=== PATIENT | male | born 1975 | race Caucasian/White ===

== ENCOUNTER 2017-10-28 08:00 | Emergency (ER) | payer MEDICAID ==
[~2017-10-28] VITALS: Ht 165.1 cm; Wt 148.1 kg
[2017-10-28 08:08] VITALS: BP 135/73
[2017-10-28] MEDS ORDERED: OXYcodone/APAP 5/325MG TABLET PO ONE (08:30)
[2017-10-28] MEDS ORDERED: OXYcodone/APAP 5/325MG TABLET ONE (08:32)
== END 2017-10-28 08:49 | disposition home or self-care (01) ==
LOC: ED 08:29
DX: S43.004A Unspecified dislocation of right shoulder joint, initial encounter (principal); X58.XXXA Exposure to other specified factors, initial encounter; Y93.89 Activity, other specified; Y92.009 Unspecified place in unspecified non-institutional (private) residence as the place of occurrence of the external cause; Y99.8 Other external cause status
CPT/HCPCS: 23650; 99284

== ENCOUNTER 2017-12-25 13:05 | Emergency (ER) | payer MEDICAID ==
[~2017-12-25] VITALS: Ht 167.6 cm; Wt 144.0 kg
[2017-12-25 14:15] LABS: BASOPHILS # (AUTO) 0.05 x10^3/uL (0-0.1); BASOPHILS % (AUTO) 1 % (0-1); EOSINOPHILS # (AUTO) 0.25 x10^3/uL (0-0.4); EOSINOPHILS % (AUTO) 3 % (1-7); LYMPHOCYTES # (AUTO) 2.42 x10^3/uL (1-3.4); LYMPHOCYTES % (AUTO) 24 % (22-44); MD NO; MEAN CORPUSCULAR HEMOGLOBIN 32.1 pg (27.5-34.5); MEAN CORPUSCULAR HGB CONC 34.7 g/dL (33.2-36.2); MEAN CORPUSCULAR VOLUME 92.5 fL (81-97); MEAN PLATELET VOLUME 8.2 fL (7.4-10.4); MONOCYTES # (AUTO) 0.57 x10^3/uL (0.2-0.8); MONOCYTES % (AUTO) 6 % (2-9); NEUTROPHILS # (AUTO) 6.84 x10^3/uL (1.8-6.8); NEUTROPHILS % (AUTO) 68 % (42-75); PLATELET COUNT 255 x10^3/uL (130-400); RED BLOOD COUNT 4.81 x10^6/uL (4.38-5.82); RED CELL DISTRIBUTION WIDTH 13.6 % (9.4-14.8)
[2017-12-25 14:22] LABS: ANION GAP 1 mmol/L (5-15); CALCIUM 8.7 mg/dL (8.5-10.1); CHLORIDE 113 mmol/L (98-107); CREATININE 0.71 mg/dL (0.7-1.3)
[2017-12-25] MEDS ORDERED: RISP3TAB3 PO (15:10)
[2017-12-25] MEDS ORDERED: TOPI25TA32 PO (15:11)
[2017-12-25] MEDS ORDERED: BENZ2TAB6 PO (15:11)
[2017-12-25 15:34] VITALS: BP 107/61
== END 2017-12-25 17:05 | disposition home or self-care (01) ==
LOC: ED 16:13
DX: R53.1 Weakness (principal); R11.0 Nausea; R19.7 Diarrhea, unspecified; F20.9 Schizophrenia, unspecified; R42 Dizziness and giddiness; Z59.0 Homelessness; F17.200 Nicotine dependence, unspecified, uncomplicated
CPT/HCPCS: 36415; 80048; 85025; 93005; 99285

== ENCOUNTER 2018-01-10 17:07 | Emergency (ER) | payer MEDICAID ==
[~2018-01-10] VITALS: Ht 167.6 cm; Wt 141.0 kg
[~2018-01-10 17:07] MED LIST: BENZ2TAB6 PO; RISP3TAB3 PO; TOPI25TA32 PO
[2018-01-10] MEDS ORDERED: SODIUM CHLORIDE 0.9% 1,000ML IVBOLUS ONE (17:30)
[2018-01-10] MEDS ORDERED: SODIUM CHLORIDE FLUSH 10ML SYR IVF ONE (17:30)
[2018-01-10 17:47] LABS: CULTURE INDICATED? YES; MICROSCOPIC INDICATED
[2018-01-10 18:21] LABS: ALANINE AMINOTRANSFERASE 34 U/L (12-78); ANION GAP 7 mmol/L (5-15); CALCIUM 7.8 mg/dL (8.5-10.1); CHLORIDE 112 mmol/L (98-107); CREATININE 0.64 mg/dL (0.7-1.3)
[2018-01-10 18:24] LABS: ALKALINE PHOSPHATASE 70 U/L (45-117); BASOPHILS # (AUTO) 0.01 x10^3/uL (0-0.1); BASOPHILS % (AUTO) 0 % (0-1); BILIRUBIN,TOTAL 0.5 mg/dL (0.2-1.0); EOSINOPHILS # (AUTO) 0.07 x10^3/uL (0-0.4); EOSINOPHILS % (AUTO) 2 % (1-7); LYMPHOCYTES # (AUTO) 1.27 x10^3/uL (1-3.4); LYMPHOCYTES % (AUTO) 28 % (22-44); MD NO; MEAN CORPUSCULAR HEMOGLOBIN 32.3 pg (27.5-34.5); MEAN CORPUSCULAR VOLUME 92.3 fL (81-97); MEAN PLATELET VOLUME 8.1 fL (7.4-10.4); MONOCYTES # (AUTO) 0.36 x10^3/uL (0.2-0.8); MONOCYTES % (AUTO) 8 % (2-9); NEUTROPHILS # (AUTO) 2.89 x10^3/uL (1.8-6.8); NEUTROPHILS % (AUTO) 63 % (42-75); PLATELET COUNT 217 x10^3/uL (130-400); RED BLOOD COUNT 4.65 x10^6/uL (4.38-5.82); RED CELL DISTRIBUTION WIDTH 13.8 % (9.4-14.8); TOTAL PROTEIN 6.1 g/dL (6.4-8.2)
[2018-01-10 20:16] VITALS: BP 125/55
== END 2018-01-10 20:19 | disposition home or self-care (01) ==
LOC: ED 20:13
DX: R11.2 Nausea with vomiting, unspecified (principal); R19.7 Diarrhea, unspecified; R10.9 Unspecified abdominal pain; F17.200 Nicotine dependence, unspecified, uncomplicated
CPT/HCPCS: 36415; 80053; 81001; 83605; 83690; 85025; 87086; 99284; J7030

== ENCOUNTER 2018-07-30 07:51 | Emergency (ER) | payer MEDICAID ==
[~2018-07-30] VITALS: Ht 167.6 cm; Wt 150.0 kg
[2018-07-30] MEDS ORDERED: MECLIZINE CHEWABLE 25 MG TAB PO ONE (09:00)
[2018-07-30] MEDS ORDERED: PLEASE ENTER HEIGHT AND WEIGHT MC SCH (09:00)
[2018-07-30] MEDS ORDERED: ONDANSETRON ODT 4 MG PO ONE (09:00)
[2018-07-30] MEDS ORDERED: MECLIZINE CHEWABLE 25 MG TAB ONE (09:01)
[2018-07-30] MEDS ORDERED: ONDANSETRON ODT 4 MG ONE (09:01)
[2018-07-30 09:04] VITALS: BP 116/79
--- NOTE | 2018-07-30 09:04 | NUR ---
pt returned from CT, upright on gurney awake & calm, responds approp to staff, NAD, comfort measures provided, call light within reach.
[2018-07-30 09:11] LABS: BASOPHILS # (AUTO) 0.14 x10^3/uL (0-0.1); BASOPHILS % (AUTO) 2 % (0-1); EOSINOPHILS # (AUTO) 0.22 x10^3/uL (0-0.4); EOSINOPHILS % (AUTO) 2 % (1-7); LYMPHOCYTES # (AUTO) 2.47 x10^3/uL (1-3.4); LYMPHOCYTES % (AUTO) 26 % (22-44); MD NO; MEAN CORPUSCULAR HEMOGLOBIN 31.8 pg (27.5-34.5); MEAN CORPUSCULAR HGB CONC 33.8 g/dL (33.2-36.2); MEAN CORPUSCULAR VOLUME 93.9 fL (81-97); MONOCYTES # (AUTO) 0.64 x10^3/uL (0.2-0.8); MONOCYTES % (AUTO) 7 % (2-9); NEUTROPHILS # (AUTO) 5.98 x10^3/uL (1.8-6.8); NEUTROPHILS % (AUTO) 63 % (42-75); PLATELET COUNT 250 x10^3/uL (130-400); RED BLOOD COUNT 5.19 x10^6/uL (4.38-5.82); RED CELL DISTRIBUTION WIDTH 13.8 % (9.4-14.8)
[2018-07-30 09:23] LABS: ANION GAP 6 mmol/L (5-15); CALCIUM 9.4 mg/dL (8.5-10.1); CHLORIDE 110 mmol/L (98-107)
[2018-07-30 09:24] LABS: CREATININE 0.77 mg/dL (0.7-1.3)
--- NOTE | 2018-07-30 09:26 | NUR ---
pt tolerated PO fluids well, denies NV, ERP aware.
--- NOTE | 2018-07-30 10:04 | NUR ---
pt remains upright on gurney awake & calm, responds approp to staff, NAD, comfort measures provided, call light within reach.
--- NOTE | 2018-07-30 10:31 | NUR ---
Patient given discharge instructions and Rx, they have confirmed that they understand the instructions. Patient ambulatory with steady gait.
== END 2018-07-30 10:32 | disposition home or self-care (01) ==
LOC: ED 10:16
DX: R42 Dizziness and giddiness (principal); F20.9 Schizophrenia, unspecified; F31.9 Bipolar disorder, unspecified; Z79.899 Other long term (current) drug therapy
CPT/HCPCS: 36415; 70450; 80048; 85025; 93005; 99284; Q0162

== ENCOUNTER 2018-11-21 20:00 | Emergency (ER) | payer MEDICAID ==
[~2018-11-21] VITALS: Ht 167.6 cm; Wt 130.9 kg
[2018-11-21 20:02] VITALS: BP 132/70
[2018-11-21 20:39] LABS: BASOPHILS # (AUTO) 0.11 x10^3/uL (0-0.1); BASOPHILS % (AUTO) 1 % (0-1); EOSINOPHILS # (AUTO) 0.26 x10^3/uL (0-0.4); EOSINOPHILS % (AUTO) 3 % (1-7); LYMPHOCYTES # (AUTO) 2.74 x10^3/uL (1-3.4); LYMPHOCYTES % (AUTO) 30 % (22-44); MD NO; MEAN CORPUSCULAR HEMOGLOBIN 32.5 pg (27.5-34.5); MEAN CORPUSCULAR HGB CONC 33.7 g/dL (33.2-36.2); MEAN CORPUSCULAR VOLUME 96.3 fL (81-97); MEAN PLATELET VOLUME 8.2 fL (7.4-10.4); MONOCYTES # (AUTO) 0.64 x10^3/uL (0.2-0.8); MONOCYTES % (AUTO) 7 % (2-9); NEUTROPHILS # (AUTO) 5.46 x10^3/uL (1.8-6.8); NEUTROPHILS % (AUTO) 59 % (42-75); PLATELET COUNT 274 x10^3/uL (130-400); RED BLOOD COUNT 4.92 x10^6/uL (4.38-5.82); RED CELL DISTRIBUTION WIDTH 13.9 % (9.4-14.8)
[2018-11-21 20:47] LABS: ALANINE AMINOTRANSFERASE 31 U/L (12-78); ALBUMIN 3.7 g/dL (3.4-5.0); ANION GAP 7 mmol/L (5-15); CALCIUM 9.2 mg/dL (8.5-10.1); CHLORIDE 113 mmol/L (98-107); CREATININE 0.73 mg/dL (0.7-1.3)
[2018-11-21 20:49] LABS: ALKALINE PHOSPHATASE 71 U/L (45-117); BILIRUBIN,TOTAL 0.2 mg/dL (0.2-1.0)
== END 2018-11-21 21:46 | disposition home or self-care (01) ==
LOC: ED 21:42
DX: S29.9XXA Unspecified injury of thorax, initial encounter (principal); K80.20 Calculus of gallbladder without cholecystitis without obstruction; F31.9 Bipolar disorder, unspecified; F20.9 Schizophrenia, unspecified; E66.9 Obesity, unspecified; Z68.42 Body mass index [BMI] 45.0-49.9, adult; W19.XXXA Unspecified fall, initial encounter; Y93.89 Activity, other specified; Y92.89 Other specified places as the place of occurrence of the external cause; Y99.8 Other external cause status
CPT/HCPCS: 36415; 76700; 80053; 80307; 83690; 85025; 99284

== ENCOUNTER 2018-11-23 10:17 | Emergency (ER) | payer MEDICAID ==
[~2018-11-23] VITALS: Ht 167.6 cm; Wt 130.0 kg
[2018-11-23] MEDS ORDERED: HYDROcodone/APAP 5/325 TABLET ONE (11:15)
--- NOTE | 2018-11-23 11:17 | NUR ---
PT MEDICATED PER JUN. PT RESTING IN GURNEY WITH MOTHER AT BEDSIDE. NO NEEDS AT THIS TIME
[2018-11-23] MEDS ORDERED: HYDROcodone/APAP 5/325 TABLET PO ONE (11:30)
--- NOTE | 2018-11-23 11:35 | NUR ---
PT TO CT
[2018-11-23 12:02] VITALS: BP 122/61
--- NOTE | 2018-11-23 12:32 | NUR ---
PT NOW REFUSING HEAD CT, STATES HE WANTS TO LEAVE TO SMOKE A CIGARETTE. PTS MOTHER WOULD LIKE TO FU WITH FOOD SCIENCE TECHNICIAN. MD NOTIFIED
== END 2018-11-23 13:01 | disposition home or self-care (01) ==
LOC: ED 12:29
DX: S20.211A Contusion of right front wall of thorax, initial encounter (principal); W18.30XA Fall on same level, unspecified, initial encounter; Y93.89 Activity, other specified; Y92.098 Other place in other non-institutional residence as the place of occurrence of the external cause; Y99.8 Other external cause status
CPT/HCPCS: 71250; 99284

== ENCOUNTER 2018-12-08 06:11 | Emergency (ER) | payer MEDICAID ==
[~2018-12-08] VITALS: Ht 165.1 cm; Wt 131.5 kg
[2018-12-08 08:06] VITALS: BP 152/70
== END 2018-12-08 08:09 | disposition home or self-care (01) ==
LOC: ED 06:20
DX: L03.113 Cellulitis of right upper limb (principal); L03.114 Cellulitis of left upper limb; F17.200 Nicotine dependence, unspecified, uncomplicated
CPT/HCPCS: 71045; 99283

== ENCOUNTER 2018-12-29 19:55 | Emergency (ER) | payer MEDICAID ==
[~2018-12-29] VITALS: Ht 170.2 cm; Wt 132.0 kg
[2018-12-29 21:35] VITALS: BP 101/64
== END 2018-12-29 21:37 | disposition home or self-care (01) ==
LOC: ED 20:20
DX: J00 Acute nasopharyngitis [common cold] (principal); B34.9 Viral infection, unspecified; F31.9 Bipolar disorder, unspecified; F20.9 Schizophrenia, unspecified; E66.9 Obesity, unspecified; Z68.42 Body mass index [BMI] 45.0-49.9, adult
CPT/HCPCS: 71045; 99283

== ENCOUNTER 2019-02-25 07:42 | Emergency (ER) | payer MEDICAID ==
[~2019-02-25] VITALS: Ht 157.5 cm; Wt 131.3 kg
[2019-02-25 07:44] VITALS: BP 105/55
--- NOTE | 2019-02-25 08:36 | NUR ---
Patient given discharge instructions and they have confirmed that they understand the instructions. Patient ambulatory with steady gait.
== END 2019-02-25 08:43 | disposition home or self-care (01) ==
LOC: ED 08:33
DX: R05 Cough (principal); E66.9 Obesity, unspecified
CPT/HCPCS: 71046; 82962; 99283

== ENCOUNTER 2019-03-15 09:39 | Emergency (ER) | payer MEDICAID ==
[2019-03-15 09:43] VITALS: BP 107/65
--- NOTE | 2019-03-15 09:54 | NUR ---
PATIENT BROUGHT BACK FROM TRIAGE WITH CHIEF COMPLAINT OF "FEELING POOR SINCE YESTERDAY, MY MOM HAS PNEUMONIA" THE PATIENT STATES HE HAS HAD ANNINTTERMITTENT COUGH, SORE THROAT, & CONGESTION.
[2019-03-15 10:21] LABS: BASOPHILS # (AUTO) 0.02 x10^3/uL (0-0.1); BASOPHILS % (AUTO) 0 % (0-1); EOSINOPHILS # (AUTO) 0.11 x10^3/uL (0-0.4); EOSINOPHILS % (AUTO) 2 % (1-7); LYMPHOCYTES # (AUTO) 1.16 x10^3/uL (1-3.4); LYMPHOCYTES % (AUTO) 18 % (22-44); MD NO; MEAN CORPUSCULAR HEMOGLOBIN 32.1 pg (27.5-34.5); MEAN CORPUSCULAR HGB CONC 34.2 g/dL (33.2-36.2); MEAN PLATELET VOLUME 7.8 fL (7.4-10.4); MONOCYTES # (AUTO) 0.19 x10^3/uL (0.2-0.8); MONOCYTES % (AUTO) 3 % (2-9); NEUTROPHILS # (AUTO) 5.11 x10^3/uL (1.8-6.8); NEUTROPHILS % (AUTO) 78 % (42-75); PLATELET COUNT 250 x10^3/uL (130-400); RED BLOOD COUNT 5.14 x10^6/uL (4.38-5.82); RED CELL DISTRIBUTION WIDTH 13.9 % (9.4-14.8)
[2019-03-15 10:32] LABS: ALANINE AMINOTRANSFERASE 39 U/L (12-78); ALBUMIN 3.6 g/dL (3.4-5.0); CALCIUM 8.8 mg/dL (8.5-10.1); CHLORIDE 111 mmol/L (98-107); CREATININE 0.77 mg/dL (0.7-1.3)
[2019-03-15 10:32] LABS: RAPID INFLUENZA A Negative (Negative); RAPID INFLUENZA B Negative (Negative)
[2019-03-15 10:36] LABS: ALKALINE PHOSPHATASE 82 U/L (45-117); BILIRUBIN,TOTAL 0.5 mg/dL (0.2-1.0)
--- NOTE | 2019-03-15 10:45 | NUR ---
WATER PROVIDED, PATIENT RESTING IN BED.
[2019-03-15 10:50] LABS: ANION GAP 5 mmol/L (5-15)
== END 2019-03-15 11:44 | disposition home or self-care (01) ==
LOC: ED 11:09
DX: J18.9 Pneumonia, unspecified organism (principal); E66.9 Obesity, unspecified
CPT/HCPCS: 36415; 71046; 80053; 85025; 87081; 87400; 87880; 99284

== ENCOUNTER 2020-03-14 10:07 | Emergency (ER) | payer MEDICAID ==
[~2020-03-14] VITALS: Ht 170.2 cm; Wt 130.3 kg
[~2020-03-14 10:07] MED LIST changes: -RISP3TAB3 PO; +RISP3TAB58 PO
[2020-03-14 10:20] VITALS: BP 133/72
--- NOTE | 2020-03-14 10:37 | NUR ---
CARE FOR DC ONLY PROVIDED. REVIEWED DC INSTRUCTIONS WITH PT. UNDERSTANDING VERBALIZED. PT DECLINED MEDICATION ASSISTANCE INFORMATION. PT LEFT AMB, GAIT STEADY
== END 2020-03-14 10:40 | disposition home or self-care (01) ==
LOC: ED 10:37
DX: F20.9 Schizophrenia, unspecified (principal); Z76.0 Encounter for issue of repeat prescription; F31.9 Bipolar disorder, unspecified
CPT/HCPCS: 99281

== ENCOUNTER 2020-03-20 00:24 | Emergency (ER) | payer MEDICAID ==
[~2020-03-20] VITALS: Ht 165.1 cm; Wt 132.2 kg
[2020-03-20 00:34] VITALS: BP 126/79
--- NOTE | 2020-03-20 00:46 | NUR ---
PT AMBULATES FROM LOBBY TO ROOM WITH STEADY GAIT.
--- NOTE | 2020-03-20 02:24 | NUR ---
pt d/c with d/c summary and scripts. pt ambulates to registration desk with steady gait for d/c home and denies any other needs pertaining to this visit.
== END 2020-03-20 02:26 | disposition home or self-care (01) ==
LOC: ED 01:26
DX: M79.672 Pain in left foot (principal); M79.671 Pain in right foot; F17.200 Nicotine dependence, unspecified, uncomplicated; Z76.0 Encounter for issue of repeat prescription; Z72.9 Problem related to lifestyle, unspecified
CPT/HCPCS: 99281

== ENCOUNTER 2020-04-05 09:56 | Emergency (ER) | payer MEDICAID ==
[~2020-04-05] VITALS: Ht 170.2 cm; Wt 146.0 kg
[2020-04-05 10:12] VITALS: BP 127/77
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
[2020-04-05] MEDS ORDERED: ACETAMINOPHEN 500 MG TABLET ONE (10:29)
[2020-04-05] MEDS ORDERED: ACETAMINOPHEN 500 MG TABLET PO ONE (10:30)
[2020-04-05] MEDS ORDERED: PLEASE ENTER HEIGHT AND WEIGHT MC SCH (10:30)
== END 2020-04-05 10:47 | disposition home or self-care (01) ==
LOC: ED 10:14
DX: S40.012A Contusion of left shoulder, initial encounter (principal); S00.83XA Contusion of other part of head, initial encounter; R11.2 Nausea with vomiting, unspecified; Y04.0XXA Assault by unarmed brawl or fight, initial encounter; Y93.89 Activity, other specified; Y92.009 Unspecified place in unspecified non-institutional (private) residence as the place of occurrence of the external cause; Y99.8 Other external cause status
CPT/HCPCS: 99283; 99284

== ENCOUNTER 2020-04-05 22:42 | Emergency (ER) | payer MEDICAID ==
[~2020-04-05] VITALS: Ht 165.1 cm; Wt 129.8 kg
[2020-04-05 22:44] VITALS: BP 121/71
[2020-04-05] MEDS ORDERED: ACETAMINOPHEN 325 MG TABLET ONE (22:58)
[2020-04-05] MEDS ORDERED: ACETAMINOPHEN 325 MG TABLET PO ONE (23:00)
== END 2020-04-05 23:05 | disposition home or self-care (01) ==
LOC: ED 22:55
DX: S50.12XA Contusion of left forearm, initial encounter (principal); S50.11XA Contusion of right forearm, initial encounter; S00.91XA Abrasion of unspecified part of head, initial encounter; Z72.9 Problem related to lifestyle, unspecified; F17.200 Nicotine dependence, unspecified, uncomplicated; X58.XXXA Exposure to other specified factors, initial encounter; Y93.89 Activity, other specified; Y92.89 Other specified places as the place of occurrence of the external cause; Y99.8 Other external cause status
CPT/HCPCS: 99281

== ENCOUNTER 2020-05-07 13:15 | Emergency (ER) | payer MEDICAID ==
[~2020-05-07] VITALS: Ht 167.6 cm; Wt 125.0 kg
[2020-05-07] MEDS ORDERED: RISPERIDONE 2 MG TABLET ONE (14:54)
[2020-05-07] MEDS ORDERED: BENZTROPINE 1 MG TABLET ONE (14:54)
[2020-05-07] MEDS ORDERED: TOPIRAMATE 25 MG TABLET PO ONE (15:00)
[2020-05-07] MEDS ORDERED: RISPERIDONE 2 MG TABLET PO ONE (15:00)
[2020-05-07] MEDS ORDERED: BENZTROPINE 1 MG TABLET PO ONE (15:00)
[2020-05-07 15:43] LABS: BASOPHILS % (AUTO) 1 % (0-1); EOSINOPHILS % (AUTO) 1 % (1-7); LYMPHOCYTES % (AUTO) 40 % (22-44); MEAN CORPUSCULAR HEMOGLOBIN 31.9 pg (27.5-34.5); MEAN CORPUSCULAR HGB CONC 34.1 g/dL (33.2-36.2); MEAN PLATELET VOLUME 7.6 fL (7.4-10.4); MONOCYTES % (AUTO) 8 % (2-9); NEUTROPHILS % (AUTO) 50 % (42-75); PLATELET COUNT 264 x10^3/uL (130-400); RED BLOOD COUNT 5.16 x10^6/uL (4.38-5.82); RED CELL DISTRIBUTION WIDTH 13.4 % (9.4-14.8)
[2020-05-07 15:52] LABS: ANION GAP 4 mmol/L (5-15); CALCIUM 9.1 mg/dL (8.5-10.1); CHLORIDE 108 mmol/L (98-107); SALICYLATE LEVEL 3.6 mg/dL (2.8-20.0)
[2020-05-07 15:53] LABS: MD NO
[2020-05-07 15:56] LABS: ALANINE AMINOTRANSFERASE 40 U/L (12-78); ALKALINE PHOSPHATASE 81 U/L (45-117); BILIRUBIN,TOTAL 0.7 mg/dL (0.2-1.0); TOTAL PROTEIN 7.4 g/dL (6.4-8.2)
[2020-05-07 16:01] VITALS: BP 114/72
--- NOTE | 2020-05-07 16:01 | NUR ---
PT PLACED IN GOWN. BELONGINGS PLACED IN TWO BELONGINGS BAG AND ATTACHED TO HIS BOOKBAG AND PLACED IN LOCKED CABINET. DENIES PAIN. VSS.
--- NOTE | 2020-05-07 17:31 | NUR ---
PT CONTINUES TO WATCH TV IN BED. APPEARS IN NO ACUTE DISTRESS.
[2020-05-08] MEDS ORDERED: TOPIRAMATE 25 MG TABLET PO SCH (09:00)
[2020-05-08] MEDS ORDERED: RISPERIDONE 2 MG TABLET PO SCH (21:00)
[2020-05-08] MEDS ORDERED: BENZTROPINE 1 MG TABLET PO SCH (21:00)
== END 2020-05-07 18:22 | disposition other institution (70) ==
LOC: ED 16:58
DX: F32.9 Major depressive disorder, single episode, unspecified (principal); Z20.822 Contact with and (suspected) exposure to COVID-19; F20.9 Schizophrenia, unspecified
CPT/HCPCS: 36415; 80053; 80299; 80320; 80329; 85025; 87426; 99284; G0480

== ENCOUNTER 2020-05-07 15:56 | Inpatient (IN) | payer MEDICAID ==
[~2020-05-07] VITALS: Ht 170.2 cm; Wt 121.1 kg
[2020-05-07] MEDS ORDERED: ACETAMINOPHEN 325 MG TABLET PO PRN (17:00)
[2020-05-07] MEDS ORDERED: DOCUSATE 100 MG CAPSULE PO PRN (17:00)
[2020-05-07] MEDS ORDERED: POLYETHYLENE GLYCOL 17 GM PACKET PO PRN (17:00)
[2020-05-07] MEDS ORDERED: BISACODYL 10 MG SUPP PR PRN (17:00)
[2020-05-07] MEDS ORDERED: ONDANSETRON ODT 4 MG PO PRN (17:00)
[2020-05-07] MEDS ORDERED: PLEASE ENTER HEIGHT AND WEIGHT MC SCH (18:30)
[2020-05-07 19:45] VITALS: BP 125/79
[2020-05-07 20:30] VITALS: BP 125/79
[2020-05-08 07:10] VITALS: BP 110/70
[2020-05-08 08:37] LABS: CHOL/HDL RATIO 3.8; FREE T4 (FREE THYROXINE) 0.98 ng/dL (0.76-1.46); LDL/HDL RATIO 2.3 (0.5-3.0)
[2020-05-08] MEDS: TOPIRAMATE 25 MG TABLET PO SCH (08:41)
[2020-05-08 09:37] LABS: AMPHETAMINE SCREEN, URINE Positive (Negative); BARBITURATE SCREEN, URINE Negative (Negative); BENZODIAZEPINE SCREEN, URINE Negative (Negative); CANNABINOID SCREEN, URINE Negative (Negative); COCAINE SCREEN, URINE Negative (Negative); METHADONE SCREEN, URINE Negative (Negative); OPIATE SCREEN, URINE Negative (Negative)
[2020-05-08 09:38] LABS: MICROSCOPIC INDICATED
[2020-05-08 19:41] VITALS: BP 95/64
[2020-05-08] MEDS: RISPERIDONE 2 MG TABLET PO SCH (20:38)
[2020-05-08] MEDS: BENZTROPINE 1 MG TABLET PO SCH (20:38)
[2020-05-09 07:12] VITALS: BP 108/72
[2020-05-09] MEDS: TOPIRAMATE 25 MG TABLET PO SCH (08:23)
[2020-05-09 21:12] VITALS: BP 98/64
[2020-05-09] MEDS: RISPERIDONE 2 MG TABLET PO SCH (21:13)
[2020-05-09] MEDS: BENZTROPINE 1 MG TABLET PO SCH (21:13)
[2020-05-10 07:19] VITALS: BP 108/68
[2020-05-10] MEDS: TOPIRAMATE 25 MG TABLET PO SCH (08:22)
[2020-05-10 19:45] VITALS: BP 119/75
[2020-05-10] MEDS: BENZTROPINE 1 MG TABLET PO SCH (20:16)
[2020-05-10] MEDS: RISPERIDONE 2 MG TABLET PO SCH (20:17)
[2020-05-11 07:17] VITALS: BP 111/74
[2020-05-11] MEDS: TOPIRAMATE 25 MG TABLET PO SCH (08:31)
[2020-05-11 19:31] VITALS: BP 113/72
[2020-05-11] MEDS: RISPERIDONE 2 MG TABLET PO SCH (20:20)
[2020-05-11] MEDS: BENZTROPINE 1 MG TABLET PO SCH (20:20)
[2020-05-12 07:13] VITALS: BP 113/77
[2020-05-12] MEDS: TOPIRAMATE 25 MG TABLET PO SCH (09:05)
[2020-05-12] MEDS ORDERED: BENZ1TAB61 PO (15:01)
[2020-05-12] MEDS ORDERED: RISP2TAB80 PO (15:01)
[2020-05-12] MEDS ORDERED: TOPI25TA32 PO (15:01)
== END 2020-05-12 15:32 | disposition home or self-care (01) | DRG 750 ==
LOC: 3E 18:09
PROVIDERS: ADMIT Psychiatry & Neurology Psychosomatic Medicine; ATTEND Psychiatry & Neurology Psychosomatic Medicine
DX: F25.0 Schizoaffective disorder, bipolar type (principal); E66.9 Obesity, unspecified; I45.10 Unspecified right bundle-branch block; F15.10 Other stimulant abuse, uncomplicated; F17.200 Nicotine dependence, unspecified, uncomplicated; Z79.899 Other long term (current) drug therapy; Z91.14 Patient's other noncompliance with medication regimen; Z68.41 Body mass index [BMI] 40.0-44.9, adult; F42.9 Obsessive-compulsive disorder, unspecified; Z88.0 Allergy status to penicillin
CPT/HCPCS: 36415; 71045; 80061; 80307; 81001; 84439; 84443; 87086; 87147; 93005; 99285

== ENCOUNTER 2020-08-14 19:48 | Emergency (ER) | payer MEDICAID ==
[~2020-08-14] VITALS: Ht 172.7 cm; Wt 131.7 kg
[~2020-08-14 19:48] MED LIST changes: +BENZ1TAB61 PO; +RISP2TAB80 PO
[2020-08-14 19:54] VITALS: BP 118/74
--- NOTE | 2020-08-14 20:13 | NUR ---
PROVIDER IN TRIAGE IMER ASSESSED PT.
== END 2020-08-14 20:38 | disposition home or self-care (01) ==
LOC: ED 20:03
DX: F31.9 Bipolar disorder, unspecified (principal); Z76.0 Encounter for issue of repeat prescription; E66.9 Obesity, unspecified
CPT/HCPCS: 99281

== ENCOUNTER 2020-11-14 17:45 | Emergency (ER) | payer MEDICAID ==
[~2020-11-14] VITALS: Ht 165.1 cm; Wt 131.5 kg
[2020-11-14 17:48] VITALS: BP 129/79
--- NOTE | 2020-11-14 18:10 | NUR ---
PROGRAM ENGAGEMENT DIRECTOR: PT AMBULATORY TO ROOM FROM LOBBY.
--- NOTE | 2020-11-14 18:18 | NUR ---
TASK RN: PT AMBULATORY TO ROOM FROM [facility]. LEFT FOOT WITH OPEN BLISTER TO TOP OF FOOT AND OPEN BLISTER TO BOTTOM PAD OF LEFT FOOT. NO DRAINAGE NOTED. CALL LIGHT W/I REACH.
--- NOTE | 2020-11-14 18:59 | NUR ---
report from el cronin.
--- NOTE | 2020-11-14 19:49 | NUR ---
BETADINE SOAK FOR FEET PROVIDED.
== END 2020-11-14 20:08 | disposition home or self-care (01) ==
LOC: ED 18:58
DX: S91.332A Puncture wound without foreign body, left foot, initial encounter (principal); F17.210 Nicotine dependence, cigarettes, uncomplicated; X58.XXXA Exposure to other specified factors, initial encounter; Y93.89 Activity, other specified; Y92.410 Unspecified street and highway as the place of occurrence of the external cause; Y99.8 Other external cause status
CPT/HCPCS: 82962; 99282

== ENCOUNTER 2020-12-26 06:50 | Emergency (ER) | payer MEDICAID ==
[~2020-12-26] VITALS: Ht 165.1 cm; Wt 125.0 kg
[2020-12-26 06:56] VITALS: BP 106/71
--- NOTE | 2020-12-26 07:57 | NUR ---
PT AMBULATORY TO ROOM FROM LOBBY, PT C/O FEET HURTING AND BEING INCONTINENT OF URINE. PT HX OF PSYCH.
--- NOTE | 2020-12-26 08:53 | NUR ---
PT PROVIDED BETADINE SOAK & NEW SOCKS. SINGH
--- NOTE | 2020-12-26 09:07 | NUR ---
Patient given discharge instructions and they have confirmed that they understand the instructions. Patient ambulatory with steady gait.
== END 2020-12-26 09:08 | disposition home or self-care (01) ==
LOC: ED 08:47
DX: B35.3 Tinea pedis (principal); F17.210 Nicotine dependence, cigarettes, uncomplicated; Z72.9 Problem related to lifestyle, unspecified
CPT/HCPCS: 99282; 99406

== ENCOUNTER 2021-01-16 07:20 | Emergency (ER) | payer MEDICAID ==
[~2021-01-16] VITALS: Ht 172.7 cm; Wt 109.0 kg
[2021-01-16 07:21] VITALS: BP 117/71
--- NOTE | 2021-01-16 07:31 | NUR ---
THIS IS A UNKNOWN AGE, NAME MALE WHO WAS BIB AMBULANCE DUE TO ETOH AND LEFT FOOT PAIN. PT DOES NOT ANSWER QUESTIONS APPROPRIATELY. STATES PAIN IS AT 100/10 PAIN. FULL ROM. PT STATES HE HAS NOT HAD FOOD IN "YEARS". WARM BLANKET GIVEN AND ORDERED MEAL.
--- NOTE | 2021-01-16 10:27 | NUR ---
PT SLEEPING RESP EVEN AND UNLABORED
--- NOTE | 2021-01-16 12:21 | NUR ---
PT GAIT SLOW AND STEADY, LEFT STATES, "IM BETTER NOW, THANK YOU"
== END 2021-01-16 12:23 | disposition home or self-care (01) ==
LOC: EDBD 07:20 → ED 11:00 → MERGE 11:00 → ED 12:23
DX: F10.120 Alcohol abuse with intoxication, uncomplicated (principal); M79.672 Pain in left foot; Y90.0 Blood alcohol level of less than 20 mg/100 ml
CPT/HCPCS: 99283

== ENCOUNTER 2021-01-19 13:31 | Emergency (ER) | payer MEDICAID ==
[~2021-01-19] VITALS: Ht 162.6 cm; Wt 125.2 kg
[2021-01-19 13:36] VITALS: BP 116/74
--- NOTE | 2021-01-19 15:41 | NUR ---
PRASANNA Herron at bedside for eval, poc discussed
== END 2021-01-19 16:30 | disposition home or self-care (01) ==
LOC: ED 13:52
DX: F39 Unspecified mood [affective] disorder (principal); M25.561 Pain in right knee; Z72.9 Problem related to lifestyle, unspecified; F17.200 Nicotine dependence, unspecified, uncomplicated
CPT/HCPCS: 99281